=== PATIENT | female | born 1945 | race Caucasian/White ===

== ENCOUNTER 2021-10-18 12:53 | Emergency (ER) | payer OTHER ==
--- OUTSIDE RECORDS SUMMARY | 2021-10-18 12:56 | XMS REPORT | Continuity of Care Document ---
:1945 Author Organization [facility] Address [address] [place] [address] Dr. Murillo. [address] [place] [address] Care Team Providers Name Role Phone Carmenza Aldana MD Primary Care Physician CARMENZA ALDANA Attending Clinician Unavailable LAB90 Attending Clinician Unavailable Carmenza Aldana MD Attending Clinician Chris MASON Attending Clinician Unavailable NOÉ Attending Clinician Unavailable CHICO Attending Clinician Unavailable Inez GARVEY Attending Clinician Unavailable NOÉ Admitting Clinician Unavailable Payers Payer Name Policy Type Policy Number Effective Date Expiration Date S fozia [employer] [place] PPO 5 [id number] 2021 00:00:00 [employer] MEDICARE PPO [id number] 00:00:00 Problems Condition Condition Condition Status Onset Resolution Last Treating Co mments Source Name Details Category Date Date Treatment Clinician Date No known No known Disease Kelse y active active Seybold problems problems Allergies, Adverse Reactions, Alerts Allergy Allergy Status Severity Reaction(s) Onset Inactive Treating Comm ents Source Name Type Date Date Clinician Sulfa Propensi Active Rash [facility] ty to 3-11 Seybold adverse 00:00: reaction 00 s Social History Social Habit Start Date Stop Date Quantity Comments Source Exposure to Not sure Roselia luther SARS-CoV-2 (event) Tobacco use and 2021-09-20 2021-09-20 Smokeless tobacco Ke karon Seybold exposure 00:00:00 00:00:00 non-user Sex [birth year] Roselia Se ybold 00:00:00 00:00:00 Smoking Status Start Date Stop Date Source Never smoked tobacco Roselia villagomez Medications Ordered Filled Start Stop Current Ordering Indication Dosage Frequency Signature Comments Components Source Medication Medication Date Date Medication? Clinician (SIG) Name Name Calcium 2020-11 Yes 1{tbl} Take 1 Roselia Carb-Ergoca 1-16 tablet by moshe portillo lciferol 14:02: mouth 2 500-200 44 times MG-UNIT daily oral Tablet Immunizations Ordered Immunization Filled Immunization Date Status Commen ts Source Name Name Influenza Virus 2016-08-14 Completed Roselia diego Vaccine, Split, up 00:00:00 to age 3 Influenza Virus 2016-08-14 Completed Roselia diego Vaccine, No Preserv, 00:00:00 age 6 months and up Pneumococcal 2016-08-14 Completed Roselia Gileso ld Vaccine, Conjugate 00:00:00 13 Influenza, Seasonal, 2015-07-06 Completed Chelsie rucker Seybold Injectable 00:00:00 Pneumococcal 2012-10-05 Completed Roselia Gileso ld Vaccine, Conjugate 7 00:00:00 Vital Signs Vital Name Observation Time Observation Value Comments Source Systolic blood pressure 2021-09-20 20:00:00 136 mm[Hg] Roselia Warner Diastolic blood 2021-09-20 20:00:00 82 mm[Hg] Gris Warner pressure Body temperature 2021-09-20 20:00:00 36.83 Radha Chelsie Warner Respiratory rate 2021-09-20 20:00:00 14 /min Chelsie Warner Body height 2021-09-20 20:00:00 162.6 cm Roselia rose Body weight 2021-09-20 20:00:00 64.411 kg Roselia rose BMI 2021-09-20 20:00:00 24.37 kg/m2 Roselia rose WEIGHT 2020-08-18 09:56:00 63.5 kg HEIGHT 2020-06-09 08:20:21 162.5 cm WEIGHT 2020-06-09 08:20:21 64.8 kg Procedures This patient has no known procedures. Encounters Start End Encounter Admission Attending Care Care Encounter Source Date/Time Date/Time Type Type Clinicians Facility Department ID 2021-10-18 2021-10-18 Outpatient ROSELIA ALDANA [id number] [place]elia 15:00:00 15:00:00 ZULEYKA Seybol d 2021-10-12 2021-10-12 Outpatient ROSELIA ALDANA ROSELIA [id number] Roselia 00:00:00 00:00:00 ZULEYKA Seybol d 2021-09-20 2021-09-20 Outpatient LAB90 ROSELIA ROSELIA [id number] Roselia 14:45:00 14:45:00 Seybol d 2021-09-20 2021-09-20 Office Renaldo Aldana [id number] Roselia 13:54:30 14:24:30 Visit Zuleyka Flakito [id number] johnathon Lunarebecca [id number] 2021-07-12 2021-07-12 Outpatient CALEB MASON, MDA MDA [id number] 15:04:33 23:59:00 ULYSSES velasquez 2021-07-12 2021-07-12 Outpatient CALEB UMANZOR, MDA MDA [id number] 14:07:58 14:59:45 NISHANT velasquez 2021-01-14 2021-01-14 Outpatient CHICO [facility] [id number] [address] [place] [address] 00:00:00 00:00:00 CORINNA [address] 2021-01-04 2021-01-04 Outpatient CALEB UMANZOR, MDA MDA [id number] 13:19:15 13:31:51 NISHANT velasquez 2020-12-24 2020-12-24 Outpatient [facility] [id number] [address] [place] [address] 00:00:00 00:00:[address] 2020-08-18 2020-08-18 Outpatient CALEB UMANZOR, MDA Lloyd/Hep/Nu [id number] 08:31:00 13:53:00 NISHANT velasquez 2020-08-17 2020-08-17 Outpatient CALEB GARVEY, MDA MDA [id number] 06:54:07 06:54:07 MARIBEL velasquez 2020-08-14 2020-08-14 Outpatient CALEB GARVEY, MDA MDA [id number] 09:57:34 09:57:34 MARIBEL velasquez 2020-08-03 2020-08-03 Outpatient CALEB UMANZOR MDA MDA [id number] 14:14:45 15:00:31 NISHANT velasquez 2020-08-03 2020-08-03 Outpatient CALEB UMANZOR MDA MDA [id number] 00:00:00 00:00:00 NISHANT velasquez 2020-06-09 2020-06-09 Outpatient CALEB GARVEY MDA MDA [id number] 08:08:56 08:59:28 MARIBEL velasquez Results This patient has no known results.
--- NOTE | 2021-10-18 13:14 | RAD REPORT ---
EXAM DESCRIPTION: CT - Ct Stroke Brain Wo Cont - 10/18/2021 1:05 pm CLINICAL HISTORY: APHASIA, history of breast cancer, history of right extremity weakness COMPARISON: No comparisons TECHNIQUE: Axial 5 millimeter thick images of the head were obtained without IV contrast. All CT scans are performed using dose optimization technique as appropriate and may include automated exposure control or mA/KV adjustment according to patient size. FINDINGS: No intracranial hemorrhage is present. There is a 4-5 centimeter area of abnormally dimini shed attenuation in the white matter left frontal lobe. Along the lateral margin of this white matter abnormality there is a questionable 2 centimeter more focal density that may be a mass lesion. The s erpiginous white matter attenuation abnormality is suspicious for intracranial metastatic disease. Fi ndings are not typical for acute CVA. No suspicious cortical edema or sulcal effacement suggestive of acute CVA. There is no midline shift. No additional focal abnormalities of the brain parenchyma. Ventricles are normal size. No extra-axial fluid collections. Visualized portions of the mastoid air cells, paranasal sinuses, and orbits are unremarkable. Findings telephoned to Dr Ponce 1310 hours IMPRESSION: No intracranial hemorrhage is present. A 4-5 centimeter area of abnormal diminished attenuation in the left frontal lobe white matter is pre sent with suspected 2 centimeter lateral cortical based mass. Collective findings are suspicious for intracranial metastatic disease rather than acute CVA. Follow-up contrast-enhanced MRI brain imaging is recommended for further evaluation.
[2021-10-18] MEDS ORDERED: dexAMETHasone 10 MG/ML VIAL ONE (13:21)
[2021-10-18] MEDS ORDERED: NA CHLORIDE 0.9% 100 ML ONE (13:21)
[2021-10-18] MEDS ORDERED: LEVETIRACETAM 500 MG/5 ML VIAL IV ONE (13:21)
[2021-10-18] MEDS ORDERED: LORazepam 2 MG/ML VIAL ONE (13:23)
[2021-10-18 13:24] LABS: Absolute Lymphocytes (CBC) 2.9 K/uL (0.7-4.9); Basophils % 0.6 % (0-1.3); Hematocrit 39.4 % (36.0-45.0); Lymphocytes % 32.1 % (15.3-44.8); MPV 8.3 fL (7.6-11.3); RBC Red Blood Cell Count 4.91 M/uL (3.86-4.86)
[2021-10-18] MEDS ORDERED: NA CHLORIDE 0.9% 500 ML ONE (13:25)
[2021-10-18 13:28] LABS: Protime INR 0.91
--- NOTE | 2021-10-18 13:44 | RAD REPORT ---
EXAM DESCRIPTION: RAD - Chest Single View - 10/18/2021 1:38 pm CLINICAL HISTORY: CVA Chest pain. COMPARISON: No comparisons FINDINGS: Portable technique limits examination quality. The lungs are grossly clear. The heart is normal in size. No displaced fractures. IMPRESSION: No acute intrathoracic process suspected.
[2021-10-18 13:50] LABS: BUN Blood Urea Nitrogen 17 mg/dL (7-18); Bicarbonate 25 mmol/L (21-32); Glucose Level 110 mg/dL (74-106); Magnesium 2.3 mg/dL (1.8-2.4); Potassium 3.2 mmol/L (3.5-5.1); Sodium Level 138 mmol/L (136-145); Troponin (Emerg Dept Use Only) < 0.02 ng/mL (0.0-0.045)
--- NOTE | 2021-10-18 14:00 | ER ---
Nurse's Notes [facility] Name: Heena Morris Age: 76 yrs Sex: Female : 1945 Arrival Date: 10/18/2021 Time: 13:00 Bed 5 Private MD: Diagnosis: Cerebral edema;Cerebral mass;Weakness;Simple partial Seizure Presentation: 10/18 13:00 Chief complaint: Patient states: R sided weakness and facial droop that began at 1200 ss today. Pt also states that her R hand had not been functioning properly for the past 6 weeks. Coronavirus screen: Client denies travel out of the [place] in the last 14 days. Ebola Screen: Patient denies exposure to infectious person. Patient denies travel to an Ebola-affected area in the 21 days before illness onset. An acute neurological deficit is present. Pre-hospital glucose is not applicable to this patient. Initial Sepsis Screen: Does the patient meet any 2 criteria? No. Patient's initial sepsis screen is negative. Does the patient have a suspected source of infection? No. Patient's initial sepsis screen is negative. Risk Assessment: Do you want to hurt yourself or someone else? Patient reports no desire to harm self or others. Onset of symptoms was October 18, 2021 at 12:00. 13:00 Method Of Arrival: Ambulatory ss 13:00 Acuity: SAUL 2 ss Triage Assessment: 15:42 The onset of the patients symptoms was. General: Appears. mk 15:43 The onset of the patients symptoms was October 18, 2021 at 12:00. General: Behavior is mk calm, cooperative. Stroke Activation: Symptom onset < 3 hours Physician: Stroke Attending; Name: ; Notified At: ; Arrived At: Physician: Chief Stroke Resident; Name: ; Notified At: ; Arrived At: Physician: Stroke Resident; Name: ; Notified At: ; Arrived At: Physician: ED Attending; Name: ; Notified At: ; Arrived At: Physician: ED Resident; Name: ; Notified At: ; Arrived At: Historical: - Allergies: 13:17 Sulfa (Sulfonamide Antibiotics); ss - PMHx: 13:16 Breast CA; ss - PSHx: 13:16 Bilateral mastectomy; hysterectomy; ss - Immunization history:: Adult Immunizations unknown. - Family history:: not pertinent. - Social history:: Smoking status: Patient denies any tobacco usage or history of. - Hospitalizations: : No recent hospitalization is reported. Screenin:10 Abuse screen: Denies threats or abuse. Denies injuries from another. Nutritional jl7 screening: No deficits noted. Tuberculosis screening: No symptoms or risk factors identified. Fall Risk IV access (20 points). Total Lund Fall Scale indicates No Risk (0-24 pts). Assessment: 13:20 Neuro: Level of Consciousness is awake, alert, obeys commands, Oriented to person, place, time, situation, Retread Mold Operator are weak on right Weakness in right hand(s) arm(s) leg(s) Gait is unsteady, Speech is slurred, Facial droop on right, Pupils are dilated, irregular, dilated L pupil. Reports weakness to R hand just prior to arrival . Seizure activity moment of R sided twitching followed by gagging noted by [place] city administrator, by time RN and Rosario MD arrived s/s had stopped, pt's pulse Ox showing as 77% and increased to 98% pt's GCS back at 15, seizure prophylaxis given. Cardiovascular: Heart tones S1 S2 present Capillary refill < 3 seconds fingers toes Pulses are 2+ in right radial artery, right dorsalis pedis artery, left radial artery and left dorsalis pedis artery Rhythm is sinus rhythm. Respiratory: Airway is patent Respiratory effort is even, unlabored, Respiratory pattern is regular, symmetrical, Breath sounds are clear bilaterally. Respiratory:. GI: No signs and/or symptoms were reported involving the gastrointestinal system. GI: Abdomen is flat, non-distended. : No signs and/or symptoms were reported regarding the genitourinary system. Derm: No signs and/or symptoms reported regarding the dermatologic system. Skin is intact, Skin temperature is warm. Musculoskeletal: Reports weakness in face, right arm and right leg. 14:10 VAN Scoring: Arm Drift: Visual Disturbance: No visual disturbance noted. Aphasia: No aphasia noted. Neglect: No neglect noted. Reassessment: No changes from previously documented assessment. Patient and/or family updated on plan of care and expected duration. Pain level reassessed. Patient is alert, oriented x 3, equal unlabored respirations, skin warm/dry/pink. 14:26 Pain: Denies pain. 15:36 Reassessment: [facility] at bedside to transport pt. jl7 15:41 The patient has not been NPO before screening. The patient is alert, and able to follow mk commands. The patient exhibits slurred or garbled speech. The patient is not exhibiting difficulty speaking. The patient is exhibiting difficulty understanding words. The patient is unable to swallow own secretions without drooling or the need for suction. Patient tolerated one teaspoon of water. No drooling, immediate coughing, gurgling, or clearing of the throat was noted. The patient tolerated 90mL of water. No drooling, immediate coughing, gurgling, or clearing of the throat was noted. The patient passed the bedside swallow screening. Oral medications may be given as ordered. Contact Physician for further diet orders. Provider notified of bedside swallow screening results: Deng Ponce MD. T-PA (Activase) Screening: Indications: Contraindications:. Vital Signs: 13:00 Weight 64.86 kg (M); ss 13:09 BP 192 / 126; Pulse 107; Resp 15; Pulse Ox 100% ; jl7 13:31 BP 157 / 86; Pulse 101; Resp 18; Temp 97.9(O); Pulse Ox 99% ; mk 13:31 BP 153 / 81; Pulse 102; Resp 18; Pulse Ox 99% on R/A; mk 14:09 BP 157 / 86; Pulse 71; Resp 18; Pulse Ox 99% on R/A; mk 15:10 BP 146 / 73; Pulse 68; Resp 18; Pulse Ox 99% on R/A; mk 15:39 BP 135 / 89; Pulse 99; Resp 18; Pulse Ox 99% on R/A; mk Carla Coma Score: 13:09 Eye Response: spontaneous(4). Verbal Response: oriented(5). Motor Response: obeys mk commands(6). Total: 15. 14:09 Eye Response: spontaneous(4). Verbal Response: oriented(5). Motor Response: obeys commands(6). Total: 15. 15:10 Eye Response: spontaneous(4). Verbal Response: oriented(5). Motor Response: obeys commands(6). Total: 15. 15:39 Eye Response: spontaneous(4). Verbal Response: oriented(5). Motor Response: obeys commands(6). Total: 15. NIH Stroke Scale Scores: 14:10 NIHSS Score: 5 mk ED Course: 13:00 Patient arrived in ED. ds1 13:00 Deng Ponce MD is Attending Physician. rn 13:05 CT Stroke Brain w/o Contrast In Process Unspecified. EDMS 13:09 Inserted saline lock: 20 gauge in left antecubital area, using aseptic technique. Blood mk collected. 13:10 Triage completed. ss 13:10 Patient has correct armband on for positive identification. Placed in gown. Bed in low jl7 position. Call light in reach. Side rails up X2. front desk monitor on. Pulse ox on. NIBP on. Warm blanket given. 13:10 EKG done, by ED staff, reviewed by Deng Ponce MD COVID swab sent to lab. Inserted jl7 saline lock: 18 gauge in right antecubital area, using aseptic technique. 13:10 Initial lab(s) drawn, by ED staff, sent to lab. jl7 13:13 Comfort Valenzuela, RN is Primary Nurse. mk 13:16 Arm band placed on right wrist. ss 13:38 Stroke CXR 1 View In Process Unspecified. EDMS 14:42 initiated transfer to [facility], pt accepted in transfer by Dr Rojas, admin approval bd given by Harman Castaneda RN. 15:20 Assisted with bedpan. jl7 15:43 No provider procedures requiring assistance completed. mk 15:44 Patient transferred, IV remains in place. Administered Medications: 13:26 Drug: Decadron - Dexamethasone 10 mg Route: IVP; Site: right antecubital; 15:50 Follow up: Response: No adverse reaction mk 13:26 Drug: Keppra (levETIRAcetam) 1000 mg Route: IV; Rate: calculated rate; Site: right mk antecubital; 14:08 Follow up: IV Status: Completed infusion; IV Intake: 100ml mk 14:08 Follow up: IV Status: Completed infusion; IV Intake: 100ml 15:48 Follow up: Response: No adverse reaction 13:26 Drug: Ativan (LORazepam) 0.5 mg Route: IVP; Site: right antecubital; 15:48 Follow up: Response: No adverse reaction 13:26 Drug: NS 0.9% 500 ml Route: IV; Rate: bolus; Site: left antecubital; 14:08 Follow up: IV Status: Completed infusion; IV Intake: 500ml 15:49 Follow up: Response: No adverse reaction Point of Care Testing: Blood Glucose: 13:11 Blood Glucose: 110 mg/dL; Ranges: Intake: 14:08 IV: 100ml; Total: 100ml. mk 14:08 IV: 100ml; Total: 200ml. mk 14:08 IV: 500ml; Total: 700ml. Outcome: 14:00 ER care complete, transfer ordered by . rn 15:43 Transferred by ground EMS mk 15:43 Condition: improved 15:43 Instructed on the need for transfer. 15:57 Patient left the ED. NIH Stroke Scale - NIH Stroke Score Date: 10/18/2021 Time: 14:10 Total Score = 5 1a. Level of Consciousness (LOC) - 0(Alert) 1b. Level of Consciousness (LOC) (Month \T\ Age) - 0(Both) 1c. LOC Commands (Open \T\ Closes Eyes/Anti Tank Missileman) - 0(Both) 2. Best Gaze (Lateral Gaze Paresis) - 0(Normal) 3. Visual Field Loss - 0(No visual loss) 4. Facial Palsy - 2(Partial paralysis) 5a. Left Arm: Motor (10-second hold) - 0(No drift) 5b. Right Arm: Motor (10-second hold) - 1(Drift) 6a. Left Leg: Motor (5-second hold - always test supine) - 0(No drift) 6b. Right Leg: Motor (5-second hold - always test supine) - 1(Drift) 7. Limb Ataxia (finger/nose \T\ heel/palomino - test with eyes open) - 0(Absent) 8. Sensory Loss (pinprick arms/legs/face) - 0(Normal) 9. Best Language: Aphasia (description/naming/reading) - 0(No aphasia) 10. Dysarthria (speech clarity - read or repeat words) - 1(Mild to Moderate) 11. Extinction and Inattention (visual/tactile/auditory/spatial/personal) - 0(No abnormality) Initials: Signatures: Dispatcher [employer] EDMS Lashawn Hardy Demi ds1 Deng Ponce MD MD rn Smirch, Shelby RN CLAUDIO ss Mae Godwin RN RN jl7 Kotarski, Comfort, RN RN mk Corrections: (The following items were deleted from the chart) 14:32 14:10 Reassessment: No changes from previously documented assessment. Patient mk and/or family updated on plan of care and expected duration. Pain level reassessed. Patient is alert, oriented x 3, equal unlabored respirations, skin warm/dry/pink. mk 15:49 15:48 IV Status: Completed infusion; IV Intake: 500ml mk 15:54 13:31 Temp 97.9F Oral; mk mk
--- NOTE | 2021-10-18 14:00 | EDPHYS ---
Physician Documentation [facility] Name: Heena Morris Age: 76 yrs Sex: Female : 1945 Arrival Date: 10/18/2021 Time: 13:00 Bed 5 Private MD: ED Physician Deng Ponce HPI: 10/18 13:06 This 76 yrs old Female presents to ER via Unassigned with complaints of S/S of Possible rn Stroke. 13:06 The patient's problem is reported as a facial droop, weakness, in the right upper rn extremity, in the right lower extremity. Onset: The symptoms/episode began/occurred 1 hour(s) ago. Duration: This was a single incident. The symptoms are alleviated by nothing. The symptoms are aggravated by nothing. Associated signs and symptoms: Pertinent positives: tingling, weakness, Pertinent negatives: abdominal pain, chest pain. Severity of symptoms: At their worst the symptoms were moderate in the emergency department the symptoms are unchanged. The patient has experienced similar episodes in the past. The patient has not recently seen a physician. Patient reports sudden onset of right upper extremity and right lower extremity weakness and numbness. Reports history of breast cancer. Denies any recent head injury or procedure. Reports for the last few weeks has noted intermittent weakness and numbness of the right upper extremity but was seemingly getting better. Was getting ready 1 hour prior to arrival and noticed could not control her right arm and he was having trouble speaking with numbness to the right side of the face. Reports getting a little bit better.. Historical: - Allergies: 13:17 Sulfa (Sulfonamide Antibiotics); ss - PMHx: 13:16 Breast CA; ss - PSHx: 13:16 Bilateral mastectomy; hysterectomy; ss - Immunization history:: Adult Immunizations unknown. - Family history:: not pertinent. - Social history:: Smoking status: Patient denies any tobacco usage or history of. - Hospitalizations: : No recent hospitalization is reported. ROS: 13:06 Constitutional: Negative for fever, chills, and weight loss, Eyes: Negative for injury, rn pain, redness, and discharge, Neck: Negative for injury, pain, and swelling, Cardiovascular: Negative for chest pain, palpitations, and edema, Respiratory: Negative for shortness of breath, cough, wheezing, and pleuritic chest pain, Abdomen/GI: Negative for abdominal pain, nausea, vomiting, diarrhea, and constipation, Back: Negative for injury and pain, MS/Extremity: Negative for injury and deformity, Skin: Negative for injury, rash, and discoloration, Neuro: Negative for seizure. Exam: 13:06 Constitutional: This is a well developed, well nourished patient who is awake, alert, rn and in no acute distress. Head/Face: Normocephalic, atraumatic. Eyes: Periorbital areas with no swelling, redness, or edema. Cardiovascular: Regular rate and rhythm. No pulse deficits. Respiratory: No increased work of breathing, no retractions or nasal flaring. Abdomen/GI: Soft, non-tender Skin: Warm, dry with normal turgor. Normal color with no rashes, no lesions, and no evidence of cellulitis. MS/ Extremity: Pulses equal, no cyanosis. Neuro: Awake and alert, GCS 15, oriented to person, place, time, and situation. Right lower facial droop and decreased sensation on right side of face. Right upper face appears slightly weak. Positive drift right upper extremity. 4/5 strength right lower extremity. Sensation decreased to soft touch and painful stimuli to right upper and right lower extremity. Vital Signs: 13:00 Weight 64.86 kg (M); ss 13:09 BP 192 / 126; Pulse 107; Resp 15; Pulse Ox 100% ; jl7 13:31 BP 157 / 86; Pulse 101; Resp 18; Temp 97.9(O); Pulse Ox 99% ; mk 13:31 BP 153 / 81; Pulse 102; Resp 18; Pulse Ox 99% on R/A; mk 14:09 BP 157 / 86; Pulse 71; Resp 18; Pulse Ox 99% on R/A; mk 15:10 BP 146 / 73; Pulse 68; Resp 18; Pulse Ox 99% on R/A; mk 15:39 BP 135 / 89; Pulse 99; Resp 18; Pulse Ox 99% on R/A; mk NIH Stroke Scale Scores: 14:10 NIHSS Score: 5 mk [place] Coma Score: 13:09 Eye Response: spontaneous(4). Verbal Response: oriented(5). Motor Response: obeys commands(6). Total: 15. 14:09 Eye Response: spontaneous(4). Verbal Response: oriented(5). Motor Response: obeys mk commands(6). Total: 15. 15:10 Eye Response: spontaneous(4). Verbal Response: oriented(5). Motor Response: obeys mk commands(6). Total: 15. 15:39 Eye Response: spontaneous(4). Verbal Response: oriented(5). Motor Response: obeys mk commands(6). Total: 15. MDM: 13:00 Patient medically screened. rn 13:18 ED course: Dr. Goodman called, believes there is a mass with edema on the left side of rn the brain, will not TPA secondary to mass and edema. Patient with history of breast cancer and could be metastatic. Will transfer for admission and neurosurgical evaluation. Decadron ordered.. 13:58 Differential diagnosis: CVA, metabolic disorder, metastatic brain mass. Data reviewed: rn vital signs, nurses notes, lab test result(s), radiologic studies, CT scan, and as a result, I will admit patient. Counseling: I had a detailed discussion with the patient and/or guardian regarding: the historical points, exam findings, and any diagnostic results supporting the discharge/admit diagnosis, lab results, radiology results, the need to transfer to another facility, for higher level of care, [facility] does not immediately have the required specialist. Response to treatment: the patient's symptoms have mildly improved after treatment, and as a result, I will admit patient. 10/18 13:01 Order name: Basic Metabolic Panel; Complete Time: 14:01 rn 10/18 13:01 Order name: CBC with Diff; Complete Time: 13:48 rn 10/18 13:01 Order name: Magnesium; Complete Time: 14:01 rn 10/18 13:01 Order name: Protime (+inr); Complete Time: 13:48 rn 10/18 13:01 Order name: Ptt, Activated; Complete Time: 13:48 rn 10/18 13:01 Order name: Troponin (emerg Dept Use Only); Complete Time: 14:01 rn 10/18 13:01 Order name: CT Stroke Brain w/o Contrast; Complete Time: 13:24 rn 10/18 13:01 Order name: Stroke CXR 1 View; Complete Time: 13:48 rn 10/18 13:16 Order name: COVID-19 SARS RT PCR (Document "Date of Onset" if Symptomatic); Complete bd Time: 15:46 10/18 13:43 Order name: Glucose, Ancillary Testing; Complete Time: 13:48 EDMS 10/18 13:01 Order name: EKG; Complete Time: 13:02 rn 10/18 13:01 Order name: Accucheck; Complete Time: 13:18 rn 10/18 13:01 Order name: Cardiac monitoring; Complete Time: 13:18 rn 10/18 13:01 Order name: EKG - Nurse/Tech; Complete Time: 13:19 rn 10/18 13:01 Order name: IV Saline Lock; Complete Time: 13:19 rn 10/18 13:01 Order name: Labs collected and sent; Complete Time: 13:19 rn 10/18 13:01 Order name: NPO; Complete Time: 13:19 rn 10/18 13:01 Order name: O2 Per Protocol; Complete Time: 13:19 rn 10/18 13:01 Order name: O2 Sat Monitoring; Complete Time: 13:19 rn 10/18 13:01 Order name: Stroke Swallow Screen; Complete Time: 15:41 rn Administered Medications: 13:26 Drug: Decadron - Dexamethasone 10 mg Route: IVP; Site: right antecubital; mk 15:50 Follow up: Response: No adverse reaction mk 13:26 Drug: Keppra (levETIRAcetam) 1000 mg Route: IV; Rate: calculated rate; Site: right mk antecubital; 14:08 Follow up: IV Status: Completed infusion; IV Intake: 100ml mk 14:08 Follow up: IV Status: Completed infusion; IV Intake: 100ml mk 15:48 Follow up: Response: No adverse reaction mk 13:26 Drug: Ativan (LORazepam) 0.5 mg Route: IVP; Site: right antecubital; mk 15:48 Follow up: Response: No adverse reaction mk 13:26 Drug: NS 0.9% 500 ml Route: IV; Rate: bolus; Site: left antecubital; mk 14:08 Follow up: IV Status: Completed infusion; IV Intake: 500ml mk 15:49 Follow up: Response: No adverse reaction Point of Care Testing: Blood Glucose: 13:11 Blood Glucose: 110 mg/dL; Ranges: Critical Glucose Levels:Adult <50 mg/dl or >400 mg/dl <40 mg/dl or >180 mg/dl Disposition Summary: 10/18/21 14:00 Transfer Ordered Transfer Location: [facility] rn Reason: Higher level of care rn Condition: Stable rn Problem: new rn Symptoms: have improved rn Accepting Physician: (10/18/21 15:57) juanjo Diagnosis - Cerebral edema rn - Cerebral mass rn - Weakness rn - Simple partial Seizure rn Forms: - Medication Reconciliation Form rn - SBAR form rn NIH Stroke Scale - NIH Stroke Score Date: 10/18/2021 Time: 14:10 Total Score = 5 1a. Level of Consciousness (LOC) - 0(Alert) 1b. Level of Consciousness (LOC) (Month \\T\\ Age) - 0(Both) 1c. LOC Commands (Open \\T\\ Closes Eyes/Grain Broker) - 0(Both) 2. Best Gaze (Lateral Gaze Paresis) - 0(Normal) 3. Visual Field Loss - 0(No visual loss) 4. Facial Palsy - 2(Partial paralysis) 5a. Left Arm: Motor (10-second hold) - 0(No drift) 5b. Right Arm: Motor (10-second hold) - 1(Drift) 6a. Left Leg: Motor (5-second hold - always test supine) - 0(No drift) 6b. Right Leg: Motor (5-second hold - always test supine) - 1(Drift) 7. Limb Ataxia (finger/nose \\T\\ heel/palomino - test with eyes open) - 0(Absent) 8. Sensory Loss (pinprick arms/legs/face) - 0(Normal) 9. Best Language: Aphasia (description/naming/reading) - 0(No aphasia) 10. Dysarthria (speech clarity - read or repeat words) - 1(Mild to Moderate) 11. Extinction and Inattention (visual/tactile/auditory/spatial/personal) - 0(No abnormality) Initials: juanjo Signatures: Dispatcher [employer] EDMS Deng Ponce MD MD rn Smirch, Shelby RN Mae Marcus RN RN jlComfort Thomas RN RN mk Corrections: (The following items were deleted from the chart) 15:56 14:00 Dr. tiffany geiger 15:57 15:56 Dr. juanjo geiger
[2021-10-18 16:07] VITALS: TEMP 97.9; O2SAT 99
[2021-10-18 16:12] VITALS: BP 135/89
--- NOTE | 2021-10-19 07:50 | EKG ---
Test Date: 2021-10-18 Test Time: 13:11:45 [place] Upholsterer: LL MEASUREMENT RESULTS: Intervals: Rate: 111 MI: 140 QRSD: 86 QT: 366 QTc: 497 Culver: P: 56 MI: 140 QRS: -29 T: 64 INTERPRETIVE STATEMENTS: Sinus tachycardia Moderate voltage criteria for LVH, may be normal variant Borderline ECG No previous ECG available for comparison Electronically Signed On 10-19-21 07:48:10 BOX HINGE [employer] LOCK ATTACHER by Harjeet Sommers
== END 2021-10-18 15:57 | disposition short-term general hospital (02) ==
LOC: ER 12:53
DX: G93.6 Cerebral edema (principal); G93.89 Other specified disorders of brain; G40.109 Localization-related (focal) (partial) symptomatic epilepsy and epileptic syndromes with simple partial seizures, not intractable, without status epilepticus; Z85.3 Personal history of malignant neoplasm of breast; Z90.13 Acquired absence of bilateral breasts and nipples; Z20.822 Contact with and (suspected) exposure to COVID-19; Z88.2 Allergy status to sulfonamides
CPT/HCPCS: 96365; 93005; 85025; 80048; 36415; 83735; 85610; 82947; 85730; 84484; 70450; 71045; 96375; 99285; U0003; J1100; J1953; J7040

== ENCOUNTER 2022-01-03 11:26 | Emergency (ER) | payer OTHER ==
--- OUTSIDE RECORDS SUMMARY | 2022-01-03 11:28 | XMS REPORT | Continuity of Care Document ---
:1945 Author Organization [facility] Address [address] [place] [address] Dr. Mathias [address] [place] [address] Care Team Providers Name Role Phone [phone] Primary Care Physician Unavailable Chris MASON Attending Clinician Unavailable NOÉ Attending Clinician Unavailable CHICO Attending Clinician Unavailable Inez GARVEY Attending Clinician Unavailable NOÉ Admitting Clinician Unavailable Payers Payer Name Policy Type Policy Number Effective Date Expiration Date S fozia [employer] MED[employer]ARE PPO [id number] 00:00:00 Problems This patient has no known problems. Allergies, Adverse Reactions, Alerts This patient has no known allergies or adverse reactions. Medications This patient has no known medications. Vital Signs Vital Name Observation Time Observation Value Comments Source WEIGHT 2020-08-18 09:56:00 63.5 kg HEIGHT 2020-06-09 08:20:21 162.5 cm WEIGHT 2020-06-09 08:20:21 64.8 kg Procedures This patient has no known procedures. Encounters Start End Encounter Admission Attending Care Care Encounter Source Date/Time Date/Time Type Type Clinicians Facility Department ID 2021-12-08 Outpatient NAIDA PASCAL [id number] 17:57:59 Roland velasquez 2021-07-12 2021-07-12 Outpatient CALEB MASON MDA MDA [id number] 15:04:33 23:59:00 ULYSSES velasquez 2021-07-12 2021-07-12 Outpatient CALEB UMANZOR MDA MDA [id number] 14:07:58 14:59:45 NISHANT velasquez 2021-01-14 2021-01-14 Outpatient CHICO Rhiannon [facility] [id number] 00:00:00 00:00:00 CORINNA [address]odi 2021-01-04 2021-01-04 Outpatient CALEB UMANZOR MDA MDA [id number] 13:19:15 13:31:51 NISHANT velasquez 2020-12-24 2020-12-24 [facility]patient [facility] [id number] [address] [place] [address] 00:00:00 00:00:[address] 2020-08-18 2020-08-18 Outpatient CALEB UMANZOR, MDA Lloyd/Hep/Nu [id number] 08:31:00 13:53:00 NISHANT velasquez 2020-08-17 2020-08-17 Outpatient CALEB GARVEY, [facility] MDA [id number] 06:54:07 06:54:07 MARIBEL velasquez 2020-08-14 2020-08-14 Outpatient CALEB GARVEY, [facility] MDA [id number] 09:57:34 09:57:34 MARIBEL velasquez 2020-08-03 2020-08-03 Outpatient CALEB UMANZOR, [facility] MDA [id number] MD 14:14:45 15:00:31 NISHANT velasquez 2020-08-03 2020-08-03 Outpatient NOÉ, [facility] MDA [id number] 00:00:00 00:00:00 NISHANT velasquez 2020-06-09 2020-06-09 Outpatient MARE, [facility] MDA [id number] 08:08:56 08:59:28 MARIBEL velasquez Results This patient has no known results.
[2022-01-03 12:51] LABS: Absolute Lymphocytes (CBC) 1.4 K/uL (0.7-4.9); Hematocrit 38.8 % (36.0-45.0); Lymphocytes % 13.3 % (15.3-44.8); MPV 8.3 fL (7.6-11.3); RBC Red Blood Cell Count 4.81 M/uL (3.86-4.86)
[2022-01-03 13:01] LABS: Protime INR 0.97
[2022-01-03 13:13] LABS: Sodium Level 142 mmol/L (136-145)
--- NOTE | 2022-01-03 13:23 | RAD REPORT ---
EXAM DESCRIPTION: CT - Chest For Pe Angio - 01/03/2022 1:03 pm CLINICAL HISTORY: DYSPNEA COMPARISON: Chest Single View dated 01/03/2022 TECHNIQUE: Dynamically enhanced 3 mm thick images of the chest were obtained during administration o f approximately 150mL Isovue 370 IV contrast. Coronal and oblique MIP reconstruction images were gene rated and reviewed. Exam utilizes a protocol to evaluate the pulmonary arterial tree. All CT scans are performed using dose optimization technique as appropriate and may include automated exposure control or mA/KV adjustment according to patient size. FINDINGS: No pulmonary emboli are identified. The aorta as imaged shows no acute or suspicious finding. No pericardial thickening or effusion. No acute infiltrate or suspicious mass the lung parenchyma. There are few small less than 5 mm areas of nodularity in the left upper lobe not regarded with long-term significance. No pleural effusion or pleural thickening. No mediastinal or hilar suspicious masses. No chest wall masses or abnormal axillary lymphadenopathy. Bilateral breast implants are in place. IMPRESSION: No pulmonary emboli identified. A few less than 5 mm sized areas of nodularity in the left upper lobe are not regarded as significant .
[2022-01-03 13:24] LABS: SARS-COV-2 RT PCR NEGATIVE (NEGATIVE)
[2022-01-03 13:25] LABS: ALT/SGPT 93 U/L (12-78); AST/SGOT 51 U/L (15-37); Albumin 3.5 g/dL (3.4-5.0); Alkaline Phosphatase 71 U/L (45-117); BUN Blood Urea Nitrogen 11 mg/dL (7-18); Bicarbonate 21 mmol/L (21-32); Bilirubin Total 0.4 mg/dL (0.2-1.0); Glucose Level 128 mg/dL (74-106); Magnesium 2.3 mg/dL (1.8-2.4); NT PRO-BNP 474 pg/mL (<450); Protein, Total 7.5 g/dL (6.4-8.2)
[2022-01-03 13:27] LABS: Bilirubin Direct < 0.1 mg/dL (0-0.2)
--- NOTE | 2022-01-03 13:33 | RAD REPORT ---
EXAM DESCRIPTION: RAD - Chest Single View - 01/03/2022 12:54 pm CLINICAL HISTORY: DYSPNEA COMPARISON: October 2021 TECHNIQUE: AP portable chest image was obtained 01/03/2022 12:54 pm . FINDINGS: No focal mass or consolidation. Interstitial pattern matches the comparison. Right hemidia phragm elevation again noted. Heart and vasculature are normal. No measurable pleural effusion and no pneumothorax. No acute bony abnormality seen. No acute aortic findings suspected. IMPRESSION: No acute cardiopulmonary process. No significant change from comparison study.
[2022-01-03] MEDS ORDERED: MORPHINE 2 MG/ML SYR ONE (13:34)
[2022-01-03] MEDS ORDERED: NA CHLORIDE 0.9% 1,000 ML ONE (13:35)
[2022-01-03] MEDS ORDERED: FAMOTIDINE 20 MG/2 ML VIAL IV ONE (13:35)
[2022-01-03] MEDS ORDERED: ONDANSETRON 4 MG/2 ML VIAL ONE (13:35)
[2022-01-03] MEDS ORDERED: POTASSIUM CL SA 10 MEQ TAB PO ONE (13:49)
--- NOTE | 2022-01-03 14:16 | RAD REPORT ---
EXAM DESCRIPTION: US - Extrem Venous W Compress Cristhian - 01/03/2022 1:58 pm CLINICAL HISTORY: SWELLING, bilateral leg pain COMPARISON: None. TECHNIQUE: Real-time sonographic evaluation of the bilateral lower extremity common femoral, superfi cial femoral, popliteal and posterior tibial veins was performed. FINDINGS: Normal compressibility, flow augmentation, phasic flow and spontaneous flow are identified in the left and right lower extremity common femoral, superficial femoral, popliteal and posterior t ibial veins. No intraluminal filling defects seen. IMPRESSION: No DVT in either lower extremity.
--- NOTE | 2022-01-03 14:38 | EDPHYS ---
Physician Documentation [facility] Name: Heena Morris Age: 76 yrs Sex: Female : 1945 Arrival Date: 01/03/2022 Time: 11:27 Bed 4 Private MD: YAMILE Physician Martin Mejia HPI: 01/03 14:58 This 76 yrs old Female presents to ER via Wheelchair with complaints of Shortness Of kb Breath. 14:58 The patient has shortness of breath at rest. Onset: The symptoms/episode began/occurred kb yesterday. Duration: The symptoms are continuous. The patient's shortness of breath has no apparent modifying factors. Associated signs and symptoms: The patient has no apparent associated signs or symptoms. Severity of symptoms: At their worst the symptoms were moderate in the emergency department the symptoms are unchanged. The patient has not experienced similar symptoms in the past. The patient has been recently seen by a physician: by oncologist yesterday. Pt reports shortness of breath that started yesterday. States she was seen by oncologist and was told it could be her potassium so she was given some of that. . Historical: - Allergies: 11:35 Sulfa (Sulfonamide Antibiotics); jl7 - PMHx: 11:35 BREAST CA; Brain tumor; jl7 - PSHx: 11:35 bilateral mastectomy; hysterectomy; jl7 - Immunization history:: Client reports receiving the 2nd dose of the Covid vaccine. - Social history:: Smoking status: Patient denies any tobacco usage or history of. ROS: 14:57 Constitutional: Negative for fever, chills, and weight loss. kb 14:57 Respiratory: Positive for shortness of breath, Negative for cough, dyspnea on exertion, hemoptysis, orthopnea, pleurisy, sputum production, wheezing. 14:57 All other systems are negative. Exam: 14:57 Constitutional: This is a well developed, well nourished patient who is awake, alert, kb and in no acute distress. Head/Face: Normocephalic, atraumatic. ENT: Moist Mucous membranes Cardiovascular: Regular rate and rhythm with a normal S1 and S2. No gallops, murmurs, or rubs. No pulse deficits. Respiratory: Respirations even and unlabored. No increased work of breathing. Talking in full sentences Abdomen/GI: Soft, non-tender. No distention Skin: Warm, dry with normal turgor. Normal color. MS/ Extremity: Pulses equal, no cyanosis. Neurovascular intact. Full, normal range of motion. Neuro: Awake and alert, GCS 15, oriented to person, place, time, and situation. Moves all extremities. Normal gait. Psych: Awake, alert, with orientation to person, place and time. Behavior, mood, and affect are within normal limits. Vital Signs: 11:34 BP 150 / 74; Pulse 108; Resp 29; Temp 97.2; Pulse Ox 100% on R/A; Weight 63.5 kg; jl7 Height 5 ft. 3 in. (160.02 cm); Pain 0/10; 11:44 BP 144 / 94; Pulse 102; Resp 28; Pulse Ox 100% on R/A; vg1 12:23 BP 118 / 80; Pulse 103; Resp 26; Pulse Ox 100% on R/A; Pain 0/10; ld1 14:05 BP 142 / 62; Pulse 98; Resp 18; Pulse Ox 100% on R/A; ld1 14:51 BP 143 / 69; Pulse 106; Resp 18; Pulse Ox 97% on R/A; ld1 15:30 BP 145 / 77; Pulse 107; Resp 18 S; Pulse Ox 95% ; jg9 11:34 Body Mass Index 24.80 (63.50 kg, 160.02 cm) jl7 MDM: 11:43 Patient medically screened. kb 14:57 Data reviewed: vital signs, nurses notes. Data interpreted: Pulse oximetry: on room air kb is 97 %. Interpretation: normal. Counseling: I had a detailed discussion with the patient and/or guardian regarding: the historical points, exam findings, and any diagnostic results supporting the discharge/admit diagnosis, lab results, radiology results, the need for outpatient follow up, a family practitioner, to return to the emergency department if symptoms worsen or persist or if there are any questions or concerns that arise at home. 01/03 11:55 Order name: Basic Metabolic Panel kb 01/03 11:55 Order name: CBC with Diff kb 01/03 11:55 Order name: LFT's; Complete Time: 13:28 kb 01/03 11:55 Order name: Magnesium; Complete Time: 13:28 kb 01/03 11:55 Order name: NT PRO-BNP; Complete Time: 13:28 kb 01/03 11:55 Order name: PT-INR; Complete Time: 13:08 kb 01/03 11:55 Order name: Troponin HS; Complete Time: 13:28 kb 01/03 11:55 Order name: XRAY Chest (1 view); Complete Time: 13:40 kb 01/03 11:55 Order name: CT Chest For PE Angio; Complete Time: 13:27 kb 01/03 11:55 Order name: COVID-19/FLU A+B (Document "Date of Onset" if Symptomatic); Complete Time: kb 13:27 01/03 11:55 Order name: Basic Metabolic Panel; Complete Time: 13:28 EDMS 01/03 11:55 Order name: CBC with Automated Diff; Complete Time: 13:08 EDMS 01/03 13:28 Order name: US Extremity Venous W Compression Cristhian; Complete Time: 14:21 kb 01/03 11:55 Order name: EKG; Complete Time: 11:56 kb 01/03 11:55 Order name: Cardiac monitoring; Complete Time: 12:22 kb 01/03 11:55 Order name: EKG - Nurse/Tech; Complete Time: 12:22 kb 01/03 11:55 Order name: IV Saline Lock; Complete Time: 12:22 kb 01/03 11:55 Order name: Labs collected and sent; Complete Time: 12:22 kb 01/03 11:55 Order name: O2 Per Protocol; Complete Time: 12:23 kb 01/03 11:55 Order name: O2 Sat Monitoring; Complete Time: 12:23 kb 01/03 12:25 Order name: Labs - recollect needed: recollect all tubes; Complete Time: 12:41 bd Administered Medications: 13:42 Drug: Zofran (Ondansetron) 4 mg Route: IVP; Site: right antecubital; ke1 16:05 Follow up: Response: No adverse reaction; Nausea is decreased jg9 13:43 Drug: Pepcid (famotidine) 20 mg Route: IVP; Site: right antecubital; ke1 16:06 Follow up: Response: No adverse reaction jg9 13:43 Drug: morphine 2 mg Route: IVP; Site: right antecubital; ke1 16:06 Follow up: Response: No adverse reaction; Pain is decreased jg9 14:13 Drug: NS 0.9% 1000 ml Route: IV; Rate: 1000 ml; Site: right antecubital; ke1 16:05 Follow up: IV Status: Completed infusion; IV Intake: 1000ml jg9 14:14 Drug: Potassium Chloride 40 mEq Route: PO; ke1 16:05 Follow up: Response: No adverse reaction jg9 Disposition Summary: 01/03/22 14:38 Discharge Ordered Location: Home kb Condition: Stable kb Diagnosis - Dyspnea kb - Hypokalemia kb Followup: kb - With: Emergency Department - When: As needed - Reason: Worsening of condition Followup: kb - With: Private Physician - When: 2 - 3 days - Reason: Recheck today's complaints, Continuance of care, Re-evaluation by your physician Discharge Instructions: - Discharge Summary Sheet kb - Shortness of Breath, Adult, [id number] kb - Hypokalemia kb Forms: - Medication Reconciliation Form kb - Thank You Letter kb - Antibiotic Education kb - Prescription Opioid Use kb Signatures: Dispatcher [employer] EDYuli Neumann, COMMUNICATION ASSISTANT-C COMMUNICATION ASSISTANT-Roelb Lashawn Hardy Jahala, RN RN jl7 Loren Thompson RN RN ke1 Justa Wilkerson RN jg9
--- NOTE | 2022-01-03 14:38 | ER ---
Nurse's Notes [facility] Name: Heena Morris Age: 76 yrs Sex: Female : 1945 Arrival Date: 01/03/2022 Time: 11:27 Bed 4 Private MD: Diagnosis: Dyspnea;Hypokalemia Presentation: 01/03 11:34 Chief complaint: Patient states: Difficulty breathing since yesterday. Coronavirus jl7 screen: At this time, the client does not indicate any symptoms associated with coronavirus-19. Ebola Screen: No symptoms or risks identified at this time. Initial Sepsis Screen: Does the patient meet any 2 criteria? No. Patient's initial sepsis screen is negative. Does the patient have a suspected source of infection? No. Patient's initial sepsis screen is negative. Risk Assessment: Do you want to hurt yourself or someone else? Patient reports no desire to harm self or others. Onset of symptoms was January 02, 2022. 11:34 Method Of Arrival: Wheelchair jl 11:34 Acuity: SAUL 3 jl7 Triage Assessment: 11:35 General: Appears in no apparent distress. uncomfortable, Behavior is calm, cooperative, jl7 appropriate for age. Pain: Denies pain. Respiratory: Reports shortness of breath Onset: The symptoms/episode began/occurred yesterday, the patient has moderate shortness of breath. Historical: - Allergies: 11:35 Sulfa (Sulfonamide Antibiotics); jl7 - PMHx: 11:35 BREAST CA; Brain tumor; jl7 - PSHx: 11:35 bilateral mastectomy; hysterectomy; jl7 - Immunization history:: Client reports receiving the 2nd dose of the Covid vaccine. - Social history:: Smoking status: Patient denies any tobacco usage or history of. Screenin:41 Abuse screen: Denies threats or abuse. Nutritional screening: No deficits noted. vg1 Tuberculosis screening: No symptoms or risk factors identified. Fall Risk No fall in past 12 months (0 pts). No secondary diagnosis (0 pts). IV access (20 points). Ambulatory Aid- None/Bed Rest/Nurse Assist (0 pts). Gait- Normal/Bed Rest/Wheelchair (0 pts) Mental Status- Oriented to own ability (0 pts). Total Lund Fall Scale indicates No Risk (0-24 pts). Assessment: 11:41 General: Appears uncomfortable, Behavior is cooperative. Pain: Denies pain. Neuro: vg1 Level of Consciousness is awake, alert, obeys commands, Oriented to person, place, time, situation. Cardiovascular: Capillary refill < 3 seconds Rhythm is sinus rhythm. Respiratory: Airway is patent Respiratory effort is even, labored, Respiratory pattern is tachypnea Breath sounds are clear bilaterally. GI: No signs and/or symptoms were reported involving the gastrointestinal system. : No signs and/or symptoms were reported regarding the genitourinary system. EENT: No signs and/or symptoms were reported regarding the EENT system. Derm: Skin is intact, Skin is clammy. Musculoskeletal: Circulation, motion, and sensation intact. 12:23 Reassessment: Patient appears in no apparent distress at this time. Patient and/or ld1 family updated on plan of care and expected duration. Pain level reassessed. Patient denies pain at this time. Vital Signs: 11:34 BP 150 / 74; Pulse 108; Resp 29; Temp 97.2; Pulse Ox 100% on R/A; Weight 63.5 kg; jl7 Height 5 ft. 3 in. (160.02 cm); Pain 0/10; 11:44 BP 144 / 94; Pulse 102; Resp 28; Pulse Ox 100% on R/A; vg1 12:23 BP 118 / 80; Pulse 103; Resp 26; Pulse Ox 100% on R/A; Pain 0/10; ld1 14:05 BP 142 / 62; Pulse 98; Resp 18; Pulse Ox 100% on R/A; ld1 14:51 BP 143 / 69; Pulse 106; Resp 18; Pulse Ox 97% on R/A; ld1 15:30 BP 145 / 77; Pulse 107; Resp 18 S; Pulse Ox 95% ; jg9 11:34 Body Mass Index 24.80 (63.50 kg, 160.02 cm) jl7 ED Course: 11:27 Patient arrived in ED. as 11:35 Angely Valera, RN is Primary Nurse. vg1 11:35 Triage completed. jl7 11:35 Arm band placed on right wrist. jl7 11:41 Patient has correct armband on for positive identification. Placed in gown. Bed in low vg1 position. Call light in reach. Side rails up X 1. Adult w/ patient. site monitor on. Pulse ox on. NIBP on. 11:41 Inserted saline lock: 20 gauge in right antecubital area, using aseptic technique. vg1 ,using aseptic technique. completed by SHAY Blood collected. 11:42 Yuli Fraga FNP-C is PHCP. kb 11:42 Martin Mejia MD is Attending Physician. kb 12:22 COVID-19/FLU A+B (Document "Date of Onset" if Symptomatic) Sent. ld1 12:23 No provider procedures requiring assistance completed. ld1 12:54 XRAY Chest (1 view) In Process Unspecified. EDMS 13:02 CT Chest For PE Angio In Process Unspecified. EDMS 13:56 US Extremity Venous W Compression Cristhian In Process Unspecified. EDMS 16:03 IV discontinued. jg9 16:07 Basic Metabolic Panel Sent. jg9 16:07 CBC with Diff Sent. jg9 Administered Medications: 13:42 Drug: Zofran (Ondansetron) 4 mg Route: IVP; Site: right antecubital; ke1 16:05 Follow up: Response: No adverse reaction; Nausea is decreased jg9 13:43 Drug: Pepcid (famotidine) 20 mg Route: IVP; Site: right antecubital; ke1 16:06 Follow up: Response: No adverse reaction jg9 13:43 Drug: morphine 2 mg Route: IVP; Site: right antecubital; ke1 16:06 Follow up: Response: No adverse reaction; Pain is decreased jg9 14:13 Drug: NS 0.9% 1000 ml Route: IV; Rate: 1000 ml; Site: right antecubital; ke1 16:05 Follow up: IV Status: Completed infusion; IV Intake: 1000ml jg9 14:14 Drug: Potassium Chloride 40 mEq Route: PO; ke1 16:05 Follow up: Response: No adverse reaction jg9 Intake: 16:05 IV: 1000ml; Total: 1000ml. jg9 Outcome: 14:38 Discharge ordered by . kb 16:03 Discharged to home via wheelchair, with significant other. jg9 16:03 Condition: good 16:03 Discharge instructions given to patient, Instructed on discharge instructions, follow up and referral plans. Demonstrated understanding of instructions, follow-up care. 16:04 Patient left the ED. jg9 Signatures: Dispatcher [employer] EDMS Yuli Fraga, ELECTROENCEPHALOGRAPH TECHNICIAN-C ELECTROENCEPHALOGRAPH TECHNICIAN-Leslie Silva Jahala, RN RN jl7 Angely Valera RN RN vg1 Siria Anderson, CLAUDIO RN ld1 Jsuta Wilkerson RN RN jg9 Loren Thompson, RN RN ke1 Corrections: (The following items were deleted from the chart) 11:48 11:44 BP 144 / 94; Pulse 102bpm; Resp 20bpm; Pulse Ox 100% RA; vg1 vg1 16:04 15:30 BP 145 / 77; Pulse 107bpm; Resp 18bpm; Spontaneous; Pulse Ox 95%; jg9 jg9
[2022-01-03 16:19] VITALS: TEMP 97.2
[2022-01-03 16:26] VITALS: BP 145/77; O2SAT 95
--- NOTE | 2022-01-04 11:09 | EKG ---
Test Date: 2022-01-03 Test Time: 11:49:30 [employer] Lead: SHAY MEASUREMENT RESULTS: Intervals: Rate: 101 ND: 140 QRSD: 82 QT: 382 QTc: 495 [place]: P: 83 ND: 140 QRS: 47 T: 81 INTERPRETIVE STATEMENTS: Sinus tachycardia Otherwise normal ECG Compared to ECG 10/18/2021 13:11:45 Left ventricular hypertrophy no longer present Electronically Signed On 01-04-22 11:07:46 SOCK LINING STITCHER by Harjeet Sommers
== END 2022-01-03 16:04 | disposition home or self-care (01) ==
LOC: ER 11:26
DX: E87.6 Hypokalemia (principal); Z85.3 Personal history of malignant neoplasm of breast; Z90.13 Acquired absence of bilateral breasts and nipples; Z88.2 Allergy status to sulfonamides; Z20.822 Contact with and (suspected) exposure to COVID-19
CPT/HCPCS: 96361; 93005; 85025; 80048; 36415; 83735; 85610; 82565; 80076; 84484; 83880; 0240U; 71275; 71045; 93970; 96375; 96374; 99284; Q9967; J2270; J7030; J2405

== ENCOUNTER 2024-09-04 09:57 | Observation (INO) | payer OTHER ==
[2024-09-04] MEDS ORDERED: HYDROMORPHONE HCL 1 MG/ML INJ IV PRN (10:52)
[2024-09-04 10:56] VITALS: O2SAT 99
[2024-09-04] MEDS ORDERED: LOPERAMIDE HCL 2 MG CAPSULE PO PRN (11:00)
[2024-09-04] MEDS ORDERED: ACETAMINOPHEN 325 MG TABLET PO PRN (11:00)
[2024-09-04] MEDS ORDERED: POLYETHYL GLY 3350 17 GM/DOSE PO PRN (11:00)
[2024-09-04] MEDS ORDERED: ONDANSETRON 4 MG (ODT) TAB PO PRN (11:00)
[2024-09-04] MEDS ORDERED: DIPHENHYDRAMINE 25 MG TAB/CAP PO PRN (11:00)
[2024-09-04] MEDS ORDERED: ONDANSETRON 4 MG/2 ML VIAL IV PRN (11:00)
[2024-09-04 11:29] LABS: Absolute Basophils 0.1 K/uL (0-0.5); Absolute Eosinophils 0.1 K/uL (0-0.5); Absolute Lymphocytes (CBC) 1.8 K/uL (0.7-4.9); Absolute Monocytes 0.4 K/uL (0.1-1.3); Basophils % 0.7 % (0-1.3); Eosinophils % 0.7 % (0-4.4); Hematocrit 40.7 % (36.0-45.0); Hemoglobin 13.4 g/dL (12.0-15.0); Lymphocytes % 24.6 % (15.3-44.8); MCH 27.5 pg (27.0-35.0); MCHC 32.9 g/dL (32.0-36.0); MCV 83.7 fL (80-100); MPV 8.2 fL (7.6-11.3); Platelets 219 thou/uL (152-406); RBC Red Blood Cell Count 4.87 M/uL (3.86-4.86); Red Cell Distribution Width 14.4 % (12.1-15.2)
[2024-09-04] MEDS: NACHLORIDE 0.45% 1,000 ML IV SCH (11:34)
[2024-09-04] MEDS: dexAMETHasone 4 MG/ML VIAL IV SCH (11:34)
[2024-09-04 12:11] LABS: ALT/SGPT 23 U/L (13-56); AST/SGOT 16 U/L (15-37); Albumin 3.6 g/dL (3.4-5.0); Alkaline Phosphatase 62 U/L (45-117); Anion Gap 10.7 mEq/L (5.0-15.0); BUN Blood Urea Nitrogen 25 mg/dL (7-18); Bicarbonate 23 mEq/L (21-32); Bilirubin Total 0.3 mg/dL (0.2-1.0); Globulin 3.5 g/dL (2.3-3.5); Glomerular Filtration Rate 68 ml/min (=/>90); Glucose Level 107 mg/dL (74-106); Potassium 3.7 mEq/L (3.5-5.1); Protein, Total 7.1 g/dL (6.4-8.2); Sodium Level 142 mEq/L (136-145)
[2024-09-04 12:15] LABS: Bilirubin Direct < 0.2 mg/dL (0-0.2); Bilirubin Indirect, Calculated 0.1 mg/dL (0.2-0.8)
--- NOTE | 2024-09-04 16:22 | RAD REPORT ---
Procedure: Chest Pa And Lat (2 Views) HISTORY: Chest pain . Back pain COMPARISON: 2022 FINDINGS: The lungs appear clear of acute infiltrate. No significant pleural effusion noted. The heart is normal size. IMPRESSION: No acute abnormality is displayed.
--- NOTE | 2024-09-04 17:49 | RAD REPORT ---
EXAMINATION: MRI LUMBAR SPINE WITHOUT CONTRAST CLINICAL INDICATION: Radiculopathy TECHNIQUE: Multiplanar multisequence MR images were obtained of the lumbar spine without intravenous contrast. Unless otherwise specified, incidental findings do not require dedicated imaging follow-up. [id number]. COMPARISON: No prior exam. FINDINGS: L1-2 unremarkable. Small Schmorl's node L2-3. Otherwise, unremarkable Small Schmorl's node L3-4. Tiny left posterior lateral disc herniation L3-4. Moderate right posterior lateral disc herniation L4-5 compresses the right anterior aspect of the the davon sac and narrows the right foramina. L5-S1 unremarkable 2.2 cm hemangioma L2 vertebral body suspected. Large fluid-filled structure within the anterior lower pelvis is incompletely evaluated on this exam. IMPRESSION: Moderate right posterior lateral disc herniation L4-5 Large fluid-filled structure within the anterior pelvis incompletely evaluated on this exam. This cou ld represent bladder or a cystic mass. Pelvic ultrasound is recommended.
[2024-09-04] MEDS: ENSURE ENLIVE 237 ML CAN PO SCH (20:56)
[2024-09-05] MEDS: ENOXAPARIN 40 MG/0.4 ML SQ SCH (08:51)
--- NOTE | 2024-09-05 08:59 | RAD REPORT ---
EXAMINATION: CT Abdomen Pelvis W Contrast CLINICAL INDICATION: Female, 79 years old. mass in pelvis, lymphadenopathy TECHNIQUE: CT abdomen and pelvis was performed, after the administration of IV contrast, as per [facility] protocol. Axial, sagittal and coronal reconstructions were obtained. One or more of the following dose reduction techniques were used: Automated exposure control, adjustment of the mA and k V according to patient size, and iterative reconstruction. Unless otherwise specified, incidental findings do not require dedicated imaging follow-up. COMPARISON: No prior exam. FINDINGS: LOWER CHEST: The visualized lung bases are clear. LIVER: Normal in size and contour. No focal lesion. BILIARY SYSTEM: Status post cholecystectomy. SPLEEN: Normal size. No focal lesion. PANCREAS: No mass, ductal dilation, or sharlene-pancreatic fluid. ADRENALS: Normal; no mass. KIDNEYS: Normal size and contour. No hydronephrosis. 4 mm right lower renal pole nonobstructing calcu yoselin. URINARY BLADDER: Moderately distended. No other suspicious findings. GASTROINTESTINAL TRACT: No evidence of free air, significant intra-abdominal free fluid, bowel obstru ction or abscess. APPENDIX: Appendix not visualized, but no inflammatory changes in region of appendix. LYMPH NODES: No lymphadenopathy. MUSCULOSKELETAL: No acute or suspicious osseous abnormality. ADDITIONAL FINDINGS: None. IMPRESSION: Nonobstructing right lower renal pole 4 mm calculus. Moderate bladder distention. No other acute or concerning abnormalities seen in the abdomen or pelvis.
[2024-09-05 10:56] VITALS: BMI 23.6
[2024-09-05 13:25] VITALS: BP 139/78; TEMP 98.7
--- NOTE | 2024-09-05 18:20 | P.DS ---
Admission Date: 09/04/24 Discharge Date: 09/05/24 Disposition: ROUTINE DISCHARGE Discharge Condition: SERIOUS Hospital Course: LUCI COMES WITH SEVERE THIGH PAIN. I SUSPECTED LUMBAR SPINE ISSUES. HER PAIN IS INTRACTABLE. I ADMITTED HER FOR OBS, GAVE HER IV STEROIDS, CONFIRMED WITH MRI THAT SHE HAS R L 4-[address] CARDOSO REPORTED CYSTIC STRUCTURE IN ABDOMEN THAT TURNED OUT TO BE HER BLADDER. SHE IS STABLE TO GO HOME WITH FU IN OFFICE. Vital Signs/Physical Exam: Temp Pulse Resp BP Pulse Ox 98.7 F 94 H 16 139/78 98 09/05/24 12:00 09/05/24 12:00 09/05/24 12:00 09/05/24 12:00 09/05/24 12:00 Laboratory Data at Discharge: WBC 7.40 thou/uL (4.3-10.9) 09/04/24 11:20 Hgb 13.4 g/dL (12.0-15.0) 09/04/24 11:20 Hct 40.7 % (36.0-45.0) 09/04/24 11:20 Plt Count 219 thou/uL (152-406) 09/04/24 11:20 Sodium 142 mEq/L (136-145) 09/04/24 11:20 Potassium 3.7 mEq/L (3.5-5.1) 09/04/24 11:20 BUN 25 mg/dL (7-18) H 09/04/24 11:20 Creatinine 0.87 mg/dL (0.55-1.02) 09/04/24 11:20 Glucose 107 mg/dL (74-106) H 09/04/24 11:20 Total Bilirubin 0.3 mg/dL (0.2-1.0) 09/04/24 11:20 AST 16 U/L (15-37) 09/04/24 11:20 ALT 23 U/L (13-56) 09/04/24 11:20 Alkaline Phosphatase 62 U/L (45-117) 09/04/24 11:20 Home Medications: Tamoxifen Citrate [Nolvadex] 20 mg PO DAILY 10/07/14 Venlafaxine HCl [Effexor*] 75 mg PO BID 10/07/14 Pantoprazole [Protonix Tab*] 40 mg PO DAILY 09/05/24 dexAMETHasone [Decadron*] 4 mg PO DAILY #30 tab 09/05/24 levETIRAcetam [Keppra] 500 mg PO DAILY 09/05/24 New Medications: dexAMETHasone [Decadron*] 4 mg PO DAILY #30 tab Followup: Kenji Neil MD [Primary Care Provider] - 1-2 Weeks
== END 2024-09-05 14:31 | disposition home or self-care (01) ==
LOC: 2ND 09:58
PROVIDERS: ADMIT Internal Medicine; ATTEND Internal Medicine
DX: M51.26 Other intervertebral disc displacement, lumbar region (principal); N20.0 Calculus of kidney; M79.651 Pain in right thigh; M54.9 Dorsalgia, unspecified; C71.9 Malignant neoplasm of brain, unspecified; C50.919 Malignant neoplasm of unspecified site of unspecified female breast; M54.17 Radiculopathy, lumbosacral region; G40.909 Epilepsy, unspecified, not intractable, without status epilepticus
CPT/HCPCS: 85025; 36415; 84443; 82248; 82607; 80053; 74177; 71046; 72148; 97116; 97161; 97530 ×2; Q9967; J1100 ×5; J1650; G0378; G0379